=== PATIENT | female | born 1985 | race Caucasian/White ===

== ENCOUNTER → 2017-12-18 | Day surgery (SDC) | payer OTHER ==
[~2017-12-18] VITALS: Ht 177.8 cm; Wt 72.6 kg
--- NOTE | ~2017-12-18 | O ---
[facility] [place] [address] OPERATIVE REPORT Name: ANDRESSA MEYERS Room #: [place] [facility] [place] [facility] [place] MElie.#: [id number] Admission: 12/18/17 Attend Phys: Abdias Bhatti Discharge: Date of : 83 Report #: [id number] THIS REPORT FOR: //name// CC: FAM unknown Abdias Mcclellan DATE OF SERVICE: 12/18/2017 PREOPERATIVE DIAGNOSIS: Comminuted left patellar fracture, closed. POSTOPERATIVE DIAGNOSIS: Comminuted left patellar fracture, closed. PROCEDURE PERFORMED: Open reduction and internal fixation of left comminuted patellar fracture. SURGEON: Abdias Mcclellan MD MANUFACTURING ELECTRICIAN: Sonia Bunch PA-C. ANESTHESIA: General with preoperative femoral nerve block. FLUIDS: 450 mL crystalloid. ESTIMATED BLOOD LOSS: Approximately 25 mL. TOURNIQUET TIME: Approximately 50 minutes. DESCRIPTION OF PROCEDURE: After proper identification of the patient and operative site in preoperative holding area, the operative site was signed by myself. Prophylactic antibiotics given. The patient elected for the above procedure. The patient was initially seen by my partner today, Dr. Rosendo Alex, in the office and due to OR availability, I had been trying as well as trying to fix her fracture as soon as possible. Care was transitioned to myself. I discussed the risks, benefits, alternatives, potential complications of the patient's injury as well as treatment. We discussed her potential for patellofemoral arthrosis and pain developing, discussed the potential need for hardware removal and/or future procedures and/or care and treatment. Questions were encouraged, all were answered. The patient demonstrated an understanding of above noted discussion and elected to proceed. She was brought back to the operative suite after Anesthesia performed an ultrasound-guided femoral nerve block to help manage pain postoperatively. After induction of satisfactory general anesthesia per LMA, the left knee was examined, palpable defect within the patella was noted as well as mild swelling and ecchymosis. The left leg was elevated, tourniquet was applied and the limb was sterilely prepped and draped in usual manner. An anterior midline incision [address] [address] OPERATIVE REPORT Name: ANDRESSA MEYERS Room #: REG [facility] [place] [facility] [place] Meg.#: [id number] Admission: 12/18/17 Attend Phys: Abdias Bhatti Discharge: Date of : 83 Report #: [id number] was planned. Skin was incised sharply. Full thickness skin flaps were developed. Fracture hematoma was carefully evacuated. Comminution was appreciated about the patella. The inferior aspect of the patella had 3 main fragments with several small free fragments and this occupied a smaller percentage of the articular surface. The more medial and inferior fragment was the largest one that had articular cartilage whereas the more central piece and the more lateral piece had smaller aspects of articular cartilage. They still appeared to be large enough that they were worth preserving versus excising these. There was a large more longitudinally based fragment laterally that after the fracture site was carefully removed of any soft tissue and hematoma with a curette and rongeur, this was reduced to the larger more proximally base fracture fragment with a K-wire. Next, the smaller fragments were secured with 3 more longitudinal K-wires running superior to inferior. Two tension band wires were utilized on the wires running longitudinal with a circumferential wire being placed around the patella after those had been placed. Provisional fixation with K-wires and intraoperative radiographs revealed a satisfactory reduction, both at the articular side as well as more superficially. The fracture fragments were reduced as best as possible, but with these multiple comminuted fragments, this could not be reduced anatomically at the articular surface level. There was a small rent or tear of the medial patellar retinaculum and by palpation, the articular surface appeared to be reduced nicely without any significant step-off noted of these fragments and therefore the tension bands were tightened. This was again felt and then observed on C-arm and deemed to be in satisfactory position as far as the overall fracture pattern reduction and the fragments. K-wire ends and wire ends were cut and bent to reduce any prominence within the soft tissues. The knee and wound was thoroughly irrigated with antibiotic irrigant. Tissue was closed in layers with 0 Vicryl, 2-0 Vicryl and final skin closure was with jessica. Sterile dressing and a hinged knee brace locked in full extension was applied. She was awakened and transferred to the recovery room in stable condition. Qualified first aid nurse utilized throughout the entire procedure to aid in patient limb positioning, visualization and retraction of the soft tissues, instrument passage, closure and dressing application as well as the brace. <ELECTRONICALLY SIGNED> By: Abdias Mcclellan MD 12/19/17 1317 1410 1524 Abdias Mcclellan MD /nt
[2017-12-18 12:30] VITALS: BP 108/77
== END | disposition home or self-care (01) ==
LOC: OR 11:04
DX: S82.042A Displaced comminuted fracture of left patella, initial encounter for closed fracture (principal); X58.XXXA Exposure to other specified factors, initial encounter; Y93.89 Activity, other specified; Y92.89 Other specified places as the place of occurrence of the external cause; Y99.8 Other external cause status; Z98.890 Other specified postprocedural states
CPT/HCPCS: 50010; 50101; 50386; 51277; 51412; 53337; 56525; 57091; 64037; 64043; 65060; 70005